=== PATIENT | male | born 1980 | race Caucasian/White ===

== ENCOUNTER → 2023-08-01 14:35 | Outpatient (REF) | payer OTHER, SELFPAY | LOC: RAD 14:35 | PROVIDERS: ATTENDING PHYSICIAN Family Medicine | DX: R07.81 Pleurodynia (principal) | CPT/HCPCS: 71101 ==

== ENCOUNTER 2024-02-22 17:32 | Emergency (ER) | payer OTHER, SELFPAY ==
[2024-02-22 17:32] VITALS: BMI 32.0
[2024-02-22 17:35] VITALS: BP 125/73
[2024-02-22 18:39] LABS: ALT (SGPT) 23 U/L (0-50); AST (SGOT) 23 U/L (17-59); Albumin 4.3 g/dl (3.5-5.0); Alkaline Phosphatase 59 U/L (38-126); Blood Urea Nitrogen 30 mg/dl (9-20); Calcium 9.2 mg/dl (8.4-10.2); Carbon Dioxide 20 mmol/L (22-30); Chloride 99 mmol/L (98-107); Glucose 242 mg/dl (70-99); Potassium 5.4 mmol/L (3.5-5.1); Sodium 135 mmol/L (135-145); Total Bilirubin 0.6 mg/dl (0.2-1.3); Total Protein 6.9 g/dl (6.3-8.2); eGFR > 60.00
[2024-02-22 19:54] LABS: % Basophils 0.7 % (0-2); % Immature Granulocytes 0.4 % (0-0.5); % Lymphocytes 5.7 % (20.5-51.1); % Monocytes 2.9 % (1.7-9.3); % Neutrophils 90.3 % (42.2-75.2); Absolute Basophils 0.1 10^3/uL (0-0.2); Absolute Immature Granulocytes 0.1 10^3/uL (0-0.05); Absolute Lymphocytes 0.8 10^3/uL (1.2-3.4); Absolute Monocytes 0.4 10^3/uL (0.1-0.6); Absolute Neutrophils 12.2 10^3/uL (1.4-6.5); Hematocrit 41.6 % (39.0-52.0); Hemoglobin 14.7 g/dL (13.0-18.0); Mean Corp Hgb Conc. 35.3 g/dL (33.0-37.0); Mean Corpuscular Hgb 30.6 pg (27.0-31.0); Mean Corpuscular Volume 86.5 fL (80.0-94.0); Mean Platelet Volume 9.3 fL (7.4-10.4); Nucleated Red Blood Cells % 0 % (-); Platelet Count 295 10^3/uL (130-400); Red Blood Cell Count 4.81 10^6/uL (4.70-6.10); Red Cell Dist. Width 13.9 % (11.5-14.5); White Blood Cell Count 13.5 10^3/uL (4.8-10.8)
[2024-02-22 20:10] VITALS: BP 116/75
[2024-02-22 20:17] LABS: Troponin I < 0.012 ng/ml
--- NOTE | 2024-02-22 20:54 | ED.GENMED ---
History of Present Illness
General
Chief Complaint: Chest Pain
Source: patient
Exam Limitations: none
Time Seen by Provider: 02/22/24 20:53
Nursing documentation reviewed up to this point in time: agreed with
History of Present Illness
History of Present Illness:
44-year-old male with history of HTN, NIDDM, Down syndrome with developmental delays, speaks only Martiniquais, presents with mother who states since this 8 a.m. pt has been complaining of pain, wincing and pointing to epigastric area.
At lunch he stopped eating and became tearful due to the pain stating 'I feel burn,' again pointing to epigastric area. Pain has been intermittent, at 3 p.m. mom gave TUMS and OTC 'antacid liquid' with some relief but symptom returned at 5 p.m. so
she brought him here afraid it was his heart
Pt has appointment with GI doctor in [place] next month
Past History
Past History
ED Past Medical History: HTN, NIDDM, Other (gout ) and Other (Down's syndrome)
Social History
Tobacco: Non-smoker
Alcohol: None
Personal: Single
Living: with family
Employment: Not employed
Family History
Family History: CAD (Father [place] age 48, stent, [place] age 70 2 stents)
Review of Systems
Review of Systems
Allergies reviewed?: Yes
Unable to obtain full review of systems at this time due to: other (Down's syndrome)
Other source history: family
All Other Systems: ROS reviewed and negative except as documented in HPI and ROS
Constitutional: Denies fever
Respiratory: Denies trouble breathing
Cardiac: Denies chest pain or diaphoresis
ABD/GI: Reports abdominal pain (points to epigastric area); Denies nausea, vomiting, diarrhea or anorexia
: Denies dysuria or difficulty voiding
Musculoskeletal: Reports no symptoms
Skin: Reports no symptoms
Neurological: Reports no symptoms
Phy Exam
Physical Exam
Physical Exam:
GENERAL: No acute distress. A&Ox3.
CONSTITUTIONAL: Afebrile.
EYES: clear, conjunctivae normal
ENMT: moist mucus membranes, Pharynx nl, edentulous
RESPIRATORY: Regular respirations, nonlabored, lungs clear.
CARDIOVASCULAR: Regular rate and rhythm, + murmur, no rubs.
GI: Soft, nontender, normal BS
MUSCULOSKELETAL: Moves with ease. Well perfused. No edema
SKIN: Warm, dry, pink
PSYCH: Normal mood and affect. Well kept, interactive and appropriate
NEUROLOGIC: Awake, alert and oriented. No focal neurological deficits
Scores
Heart Score for Chest Pain Patients
STEMI patient?: Not applicable
Course
Orders/Labs/Results
Orders:
Orders
02/22/24 17:36
Electrocardiogram (*1) Urgent
Reason for Study: Chest Pain
EKG- Treatment ONCE
02/22/24 17:51
Comprehensive Metabolic Panel Urgent
Lipase Urgent
Comment: ADD ON
02/22/24 19:47
Complete Blood Count/With Diff Urgent
Troponin I Urgent
02/22/24 21:08
Mag Hydrox/Al Hydrox/Simeth [Maalox] 30 ml Phenobarb/Hyoscy/Atropine/Scop [] 10 ml Viscous Lidocaine 2% [Xylocaine Viscous Cup] 10 ml PO NOW
02/22/24 21:09
Mag Hydrox/Al Hydrox/Simeth [Maalox] 30 ml .ROUTE .STK-MED ONE
Phenobarb/Hyoscy/Atropine/Scop [] 10 ml .ROUTE .STK-MED ONE
02/22/24 21:10
Viscous Lidocaine 2% [Xylocaine Viscous Cup] 15 ml .ROUTE .STK-MED ONE
02/22/24 22:17
CR Chest - 2 Views Urgent
Comment:
Reason For Exam: epigastric pain
02/22/24 22:23
Add On- LAB Urgent
Tests Added?: Lipase
02/22/24 22:24
CT Abd/Pel (IV only)-DH only Urgent
Comment:
Reason For Exam: epigastric pain
Abnormal Lab Results
02/22/24 02/22/24
17:51 19:47
WBC 13.5 H 10^3/uL
(4.8-10.8)
Abs Immat Gran (auto) 0.1 H 10^3/uL
(0-0.05)
Absolute Neuts (auto) 12.2 H 10^3/uL
(1.4-6.5)
Absolute Lymphs (auto) 0.8 L 10^3/uL
(1.2-3.4)
Neutrophils % 90.3 H %
(42.2-75.2)
Lymphocytes % 5.7 L %
(20.5-51.1)
Potassium 5.4 H mmol/L
(3.5-5.1)
Carbon Dioxide 20 L mmol/L
(22-30)
BUN 30 H mg/dl
(9-20)
Glucose 242 H mg/dl
(70-99)
02/22/24 19:47
02/22/24 17:51
Vital Signs
Initial and Last Documented VS:
Initial Vital Signs
Temp Pulse Resp Pulse Ox
97.9 F 105 18 97
02/22/24 17:34 02/22/24 17:34 02/22/24 17:34 02/22/24 17:34
Last Documented Vital Signs
Temp Pulse Resp BP Pulse Ox
98.0 F 88 14 114/67 94
02/22/24 20:10 02/22/24 22:15 02/22/24 22:15 02/22/24 22:00 02/22/24 22:15
MDM/Problems Addressed
Differential Diagnosis Includes:
SC, esophageal spasm, GERD
MDM/Problems Addressed:
44-year-old male with history of HTN, NIDDM, Down syndrome with developmental delays, speaks only Martiniquais, presents with mother who states since this 8 a.m. pt has been complaining of pain, wincing and pointing to epigastric area.
At lunch he stopped eating and became tearful due to the pain stating 'I feel burn,' again pointing to epigastric area. Pain has been intermittent, at 3 p.m. mom gave TUMS and OTC 'antacid liquid' with some relief but symptom returned at 5 p.m. so
she brought him here afraid it was his heart
Pt has appointment with GI doctor in [place] next month
EKG NSR
WBC mildly elevated
CMP BUN 20, glucose 242, bicarb [address] Sesay
Will obtain CXR and abd CT scan
11:50 p.m.
Chest x-ray radiology report read: No acute cardiopulmonary process.
CT abd/pelvis w IV only contrast: Radiology report read: Impression, gastric wall thickening likely representing underlying gastritis. No bowel obstruction normal gallbladder and appendix
Copy of report and chest x-ray given to mother
Patient referred to the [facility] cardiology hotline due to the fact that his father had an SC at age 48, patient has Down syndrome and cannot always express his symptoms
appointment with GI doctor in [place] next month
RX for Protonix sent to pt pharmacy
*Critical Care Note
Total Time (30-74mins, 75-104mins- exclusive of procedures): Not Applicable
ED Attending Note
-
Portions of this chart may have been created with voice recognition software.� Occasional wrong word or��sound alike� substitutions may have occurred due to the inherent limitations of voice recognition software.
Discharge Plan
Departure
Patient Disposition: Home (Routine Discharge)
Date of Disposition: 02/23/24
Time of Disposition: 00:09
Patient with high blood pressure during this ER visit?: No
Condition: Good
Discharge Problem:
Acute epigastric pain, Acute gastritis, Atypical chest pain
Instructions: Acid Reflux and GERD in Adults (DC), [place] Diet, Gastritis (DC), Chest Pain DCA Follow Up
Prescriptions:
New
pantoprazole [Protonix] 40 mg tablet,delayed release (DR/EC)
40 mg PO DAILY Qty: 30 0RF
No Action
Allopurinol
100 mg PO DAILY
Patient Comments:
dose unknown
lisinopril 5 MG tablet
5 mg PO DAILY
metformin [Fortamet] 500 MG tablet extended release 24hr
500 mg PO BID
docosahexaenoic acid-epa 1 CAP capsule
1 cap PO DAILY
Referrals:
Elly Jang DO [Family Provider] -
Activity Restrictions/Additional Instructions:
As we discussed, I sent a prescription for Protonix to your pharmacy
Your CAT scan is consistent with gastritis. You also have a moderate amount of stool in your colon, be sure you are moving your bowels on a regular basis and if not you may want to take a stool softener or Metamucil for constipation
[place] diet for a week to see if it helps
Keep your appointment with your GI doctor next month
Interventions
Interventions:
*Risk Screen - Suicide Last Done: 02/22/24 17:37
*General Assessment Last Done: 02/22/24 21:21
*Neglect/Abuse Screening Last Done: 02/22/24 17:37
ED- Fall Risk Assessment Last Done: 02/22/24 21:22
*ED COVID-19 Vaccine History Last Done: 02/22/24 21:22
*Nursing Disposition Last Done: 02/23/24 00:10
ED- Cardiac Assessment Last Done: 02/22/24 21:21
Discharge Date and Time
Discharge Date/Time: 02/23/24 00:10
Print Language: TAMAZIGHT
[2024-02-22] MEDS: MAALOX 50 PO (21:16)
[2024-02-22 21:19] VITALS: BP 118/61
[2024-02-22 22:00] VITALS: BP 114/67
[2024-02-22 22:57] LABS: Lipase 60 U/L (23-300)
== END 2024-02-23 00:10 | disposition home or self-care (01) ==
LOC: EMR 17:32
PROVIDERS: Emergency Medicine; EMERGENCY PHYSICIAN Emergency Medicine; FAMILY PHYSICIAN Family Medicine
DX: K29.00 Acute gastritis without bleeding (principal); R07.89 Other chest pain; E11.9 Type 2 diabetes mellitus without complications; I10 Essential (primary) hypertension; Q90.9 Down syndrome, unspecified
CPT/HCPCS: 99285; 71046; 74177; 80053; 83690; 84484; 85025; 93005; Q9967

== ENCOUNTER → 2024-04-09 07:08 | Outpatient (REF) | payer OTHER, MEDICARE, SELFPAY | LOC: DHCBC/DCA 07:08 | PROVIDERS: ATTENDING PHYSICIAN Internal Medicine Interventional Cardiology; FAMILY PHYSICIAN Family Medicine | DX: I20.89 Other forms of angina pectoris (principal) | CPT/HCPCS: 78452; 93017; A9500; J2785 ==

== ENCOUNTER → 2024-04-17 10:17 | Outpatient (REF) | payer OTHER, MEDICARE, SELFPAY | LOC: RCS 10:17 | PROVIDERS: ATTENDING PHYSICIAN Internal Medicine Interventional Cardiology; FAMILY PHYSICIAN Family Medicine | DX: I20.89 Other forms of angina pectoris (principal); I10 Essential (primary) hypertension | CPT/HCPCS: 93306 ==

== ENCOUNTER 2024-08-01 02:15 | Inpatient (IN) | payer OTHER, SELFPAY ==
[2024-07-31 21:21] VITALS: BP 136/67
--- NOTE | 2024-07-31 22:06 | ED.GENMED ---
History of Present Illness
General
Chief Complaint: Fever
Source: patient
Exam Limitations: none
Time Seen by Provider: 07/31/24 22:05
Nursing documentation reviewed up to this point in time: agreed with
History of Present Illness
History of Present Illness:
This is a 44-year-old male with past medical history of Down syndrome, hypertension, diabetes, who presents emergency department today with concerns of fever and cough for the past 3 days. Mom reports that patient started to have ever since they
got back from a trip to the [facility] for vacation. Of note, he was in contact with children who were sick with flulike symptoms. Patient speaks Puerto Rican and his mom translates for him. He reports that he also has had a sore throat with this as
well however his appetite has been normal. He has not had any nausea or vomiting, he has not had any diarrhea or abdominal pain. He denies any trouble swallowing. He took Tylenol at home for his fever.
Past History
Past History
ED Past Medical History: HTN, NIDDM, Other (gout ) and Other (Down's syndrome)
Social History
Tobacco: Non-smoker
Alcohol: None
Personal: Single
Living: with family
Employment: Not employed
Family History
Family History: CAD (Father [place] age 48, stent, [place] age 70 2 stents)
Review of Systems
Review of Systems
All Other Systems: ROS reviewed and negative except as documented in HPI and ROS
Phy Exam
Physical Exam
Physical Exam:
General: Patient is well appearing and in no acute distress; non-toxic
Skin: Warm and dry, no rashes or lesions
Head: Normocephalic, atraumatic
Eyes: Sclera non-icteric. EOMs intact.
Throat: Mild pharyngeal erythema, no cervical lymphadenopathy
Cardiac: Patient mildly tachycardic otherwise regular rhythm, no murmurs
Pulm: Normal respiratory effort, no wheezes, occasional rhonchi at right lower lung base
Abdomen: No abdominal tenderness to palpation
Neuro: CN II-XII intact, no focal neurologic deficits.
Psychiatric: Appropriate mood and affect.
Course
Orders/Labs/Results
Orders:
Orders
07/31/24 22:05
Electrocardiogram (*1) Urgent
Reason for Study: Other
Other Reason for Exam: Possible Sepsis
Cardiac Monitoring- Treatment ONCE
O2 Therapy [RESP] Urgent
Titrate/Wean O2 to maintain O2 sat greater than (%): 93
Special Instructions: TO MAINTAIN CONTINUOUS O2 SATS > OR = 93%
Pulse Ox/cont/shift [RESP] Urgent
Quantity: 1
Special Instructions: CONTINUOUS
07/31/24 22:19
CR Chest - 2 Views Urgent
Comment:
Reason For Exam: shortness of breath, cough
07/31/24 22:22
Ketorolac [Toradol] 15 mg IV NOW STA
07/31/24 22:34
Complete Blood Count/With Diff Urgent
Comprehensive Metabolic Panel Urgent
Lactic Acid Q4H
Comment: ON ICE, CANCEL 2ND ORDER IF FIRST LACTIC ACID LEVEL <2
Blood Culture Q20M
PATRICIA Source: Blood/Venous
Specimen Description:
Comment: Urgent from separate sites. If patient screens positive for possible sepsis
07/31/24 22:45
Rapid Strep Group A Urgent
PATRICIA Source: Throat/Pharynx
Specimen Description:
0.9% Sodium Chloride 500 ml [Nss] 500 ml IV BOLUS
07/31/24 22:51
COVID-19 Antigen Urgent
Source: Nasal Swab
Blood Culture Q20M
PATRICIA Source: Blood/Venous
Specimen Description:
Comment: Urgent from separate sites. If patient screens positive for possible sepsis
Influenza A+B Rapid Molecular Urgent
PATRICIA Source: Nasal Swab
Specimen Description:
Date Specimen was Collected: 07/31/24
Time Specimen was Collected: 22:35
Throat Culture, Comprehensive Urgent
PATRICIA Source: Throat/Pharynx
Specimen Description:
Date Specimen was Collected: 07/31/24
Time Specimen was Collected: 22:35
07/31/24 23:17
Urinalysis Reflex To Culture Urgent
Date Specimen was Collected: 07/31/24
Time Specimen was Collected: 22:05
Urine Microscopic Reflex Cult Urgent
07/31/24 23:40
0.9% Sodium Chloride 500 ml [Nss] 500 ml IV BOLUS
08/01/24 01:05
Oseltamivir Phosphate [Tamiflu] 75 mg PO NOW STA
08/01/24 01:57
Admit/Transfer Patient As Directed
Co-Sign Provider:
Level of Care: Inpatient admission
Assign to:: Medical/Surgical
Physician / Group: hospitalist
Diagnosis: influenza pneumonia
Reason for Hospitalization: hypoxia
Expected length of stay greater than two midnights?: Yes
ELOS- Estimated Length of Stay in days: 2
I certify the patient meets the requirements for IP care: Yes
PRN Pain Medication Management As Directed
May give lesser potent ordered pain med per pt: Yes
preference::
Protocol:: Medication orders for pain may be administered in a
manner that supports deferring to patient preference
when the pt is:
- Requesting an ordered lesser potent pain medication.
Least to most potent pain medications are defined
as: acetaminophen < NSAID < tramadol < opioids
(morphine, oxycodone, hydromorphone).
- Requesting a lesser dose of the same medication IF
ORDERED.
- Requesting a less intrusive route of administration
if both routes are prescribed by the provider (PO <
IV).
08/01/24 02:00
Code Status As Directed
Resuscitation Status: Full Code
08/01/24 02:05
MRSA Screen Routine
PATRICIA Source: Nose
Specimen Description:
CefTRIAXone [Rocephin] 1,000 mg IV NOW STA
Doxycycline [Vibramycin] 100 mg PO NOW STA
Bedside Glucose Monitoring As Directed
Frequency: Other frequency
Other frequency: once stat
08/01/24 02:14
Sterile Water [Sterile Water For Injection] 10 ml IV NOW STA
08/01/24 02:34
Acetaminophen [Tylenol] 650 mg PO Q4HPRN PRN
Bisacodyl [Dulcolax] 10 mg RECTAL [id number] PRN
Docusate W/Senna [Senokot-S] 1 tablet PO BIDPRN PRN
Guaifenesin/Dextromethorphan [Robitussin Dm] 5 ml PO Q4HPRN PRN
Ipratropium/Albuterol Sulfate [Duoneb] 3 ml INH R Q4HPRN PRN
Ketorolac [Toradol] 10 mg IV Q6HPRN PRN
Polyethylene Glycol Powder [Miralax] 17 grams PO DAILYPRN PRN
08/01/24 02:34
Activity As Directed
Activity Level: With Assistance
Bedside Glucose Monitoring As Directed
Frequency: AC&HS
Vital Signs As Directed
Frequency: Per unit guidelines
O2 Therapy [RESP] Routine
Nasal Cannula Liter Flow: 2 LPM
Titrate/Wean O2 to maintain O2 sat greater than (%): 93
Pulse Ox/spot Check [RESP] Routine
Quantity: 1
DX Deep Vein Thrombosis Video Routine
08/01/24 03:00
Flush (0.9% Sodium Chloride) [Flush (Nss)] See Dose Instructions IV PER PROTOCOL
08/01/24 Breakfast
1800 calorie (15 carb) Diabetic
Hemoglobin A1c [Glycohemoglobin (HgbA1c)] IN AM
Levothyroxine [Synthroid] 112 mcg PO DAILY @ 0600
08/01/24 07:30
Insulin Aspart Corrective Low [Novolog Flexpen-Low Resistance] See Protocol SC AC
08/01/24 08:00
Allopurinol [Zyloprim] 300 mg PO DAILY
Doxycycline [Vibramycin] 100 mg PO Q12
Glipizide Extended Release [Glucotrol Xl (Extended Release)] 5 mg PO BID AT 0800,1700
Lisinopril [Zestril] 5 mg PO DAILY
Metformin Extended Release [Glucophage Xr Extended Release] 1,000 mg PO BID AT 0800,1700
Oseltamivir Phosphate [Tamiflu] 75 mg PO BID
08/01/24 18:00
Enoxaparin Sodium [Lovenox] 40 mg SC QPM
08/02/24 02:00
CefTRIAXone [Rocephin] 1,000 mg IV Q24H
Abnormal Lab Results
07/31/24 07/31/24
22:34 23:17
RBC 4.32 L 10^6/uL
(4.70-6.10)
Hct 38.5 L %
(39.0-52.0)
Absolute Neuts (auto) 7.0 H 10^3/uL
(1.4-6.5)
Absolute Lymphs (auto) 1.0 L 10^3/uL
(1.2-3.4)
Neutrophils % 84.6 H %
(42.2-75.2)
Lymphocytes % 12.3 L %
(20.5-51.1)
Carbon Dioxide 20 L mmol/L
(22-30)
BUN 24 H mg/dl
(9-20)
Glucose 396 H mg/dl
(70-99)
Total Protein 6.1 L g/dl
(6.3-8.2)
Urine Bacteria (Reflex) Few A
(Negative)
Urine Glucose 4+ A
(Negative)
Urine Albumin (Reflex) 1+ A
(Neg - Trace)
07/31/24 22:34
07/31/24 22:34
Vital Signs
Initial and Last Documented VS:
Initial Vital Signs
Temp Pulse Resp BP Pulse Ox
102.1 F H 103 20 136/67 97
07/31/24 21:21 07/31/24 21:21 07/31/24 21:21 07/31/24 21:21 07/31/24 21:21
Last Documented Vital Signs
Temp Pulse Resp BP Pulse Ox
99.5 F 87 24 110/63 93
08/01/24 00:30 08/01/24 00:30 08/01/24 00:30 08/01/24 00:30 08/01/24 01:02
MDM/Problems Addressed
Differential Diagnosis Includes:
ddx include CAP, influenza, CHF, viral syndrome
MDM/Problems Addressed:
44-year-old male with past medical history of Down syndrome, hypertension, diabetes who presents emergency department today with concerns of fever, cough, and phlegm production for past 3 days. He denies any nausea or vomiting, diarrhea. He on
exam as well. He does have coarse lung sounds on the right. I was alerted that patient started to become hypoxic to 88% on room air. Patient started on 2 L of oxygen. New short of breath at this time. Chest x-ray suggests possible [facility]
pneumonia or viral pneumonia/viral pneumonitis. In light of new oxygen requirement, will refer for admission. Case reviewed with my attending.
*Pulse Oximetry
Patient hypoxic: no
*Critical Care Note
Total Time (30-74mins, 75-104mins- exclusive of procedures): Not Applicable
Data Reviewed
Review of Other/Old Records Reveals: Records (Reviewed ER physician documentation from 02/22/2024 patient seen for acute epigastric pain, discharged )
Source: patient and records
Update Note
Update Note:
12:52 am--I was notified by nursing staff that patient became hypoxic
ED Attending Note
-
Portions of this chart may have been created with voice recognition software.� Occasional wrong word or��sound alike� substitutions may have occurred due to the inherent limitations of voice recognition software.
Discharge Plan
Departure
Patient Disposition: Admit
Date of Disposition: 08/01/24
Time of Disposition: 01:11
Admit to: Med/Surg
Presentation/result/management discussed w/ accepting MD/DO: Hospitalist
Patient with high blood pressure during this ER visit?: Yes
Condition: Fair
Discharge Problem:
Influenza B, Acute hypoxemic respiratory failure
Interventions
Interventions:
*Risk Screen - Suicide Last Done: 07/31/24 21:21
*General Assessment Last Done: 07/31/24 23:03
*Neglect/Abuse Screening Last Done: 07/31/24 21:21
*ED- Fall Risk Assessment Last Done: 07/31/24 23:03
*ED COVID-19 Vaccine History Last Done: 07/31/24 23:03
ED- Neurological Assessment Last Done: 07/31/24 23:03
ED-Skin Assessment Last Done: 07/31/24 22:30
[2024-07-31 22:55] LABS: % Basophils 0.4 % (0-2); % Immature Granulocytes 0.4 % (0-0.5); % Lymphocytes 12.3 % (20.5-51.1); % Monocytes 2.3 % (1.7-9.3); % Neutrophils 84.6 % (42.2-75.2); Absolute Monocytes 0.2 10^3/uL (0.1-0.6); Hematocrit 38.5 % (39.0-52.0); Hemoglobin 13.1 g/dL (13.0-18.0); Mean Corpuscular Hgb 30.3 pg (27.0-31.0); Mean Corpuscular Volume 89.1 fL (80.0-94.0); Mean Platelet Volume 9.3 fL (7.4-10.4); Nucleated Red Blood Cells % 0 % (-); Platelet Count 190 10^3/uL (130-400); Red Blood Cell Count 4.32 10^6/uL (4.70-6.10); Red Cell Dist. Width 14.2 % (11.5-14.5); White Blood Cell Count 8.3 10^3/uL (4.8-10.8)
[2024-07-31] MEDS: TORADOL 15 MG IV (23:02)
[2024-07-31] MEDS: NSS 500 IV (23:05)
[2024-07-31 23:07] LABS: Lactic Acid 1.9 mmol/L (0.7-2.0)
[2024-07-31 23:08] LABS: ALT (SGPT) 23 U/L (0-50); AST (SGOT) 22 U/L (17-59); Albumin 3.5 g/dl (3.5-5.0); Alkaline Phosphatase 64 U/L (38-126); Blood Urea Nitrogen 24 mg/dl (9-20); Calcium 8.5 mg/dl (8.4-10.2); Carbon Dioxide 20 mmol/L (22-30); Chloride 106 mmol/L (98-107); Glucose 396 mg/dl (70-99); Potassium 4.4 mmol/L (3.5-5.1); Sodium 136 mmol/L (135-145); Total Bilirubin 0.3 mg/dl (0.2-1.3); Total Protein 6.1 g/dl (6.3-8.2); eGFR > 60.00
[2024-07-31 23:12] LABS: COVID-19 Antigen Negative (Negative)
[2024-07-31 23:51] LABS: Urine Albumin 1+ (Neg - Trace); Urine Bilirubin Negative (Negative); Urine Character Clear (Clear); Urine Color Yellow; Urine Glucose 4+ (Negative); Urine Ketone Negative (Negative); Urine Leukocyte Negative (Negative); Urine Nitrite Negative (Negative); Urine Occult Blood Negative (Negative); Urine Urobilinogen Negative (Neg - 1+)
[2024-08-01] VITALS (14 sets, daily range): BP systolic 103–130; BP diastolic 58–78; BMI 34.9
[2024-08-01 00:51] LABS: Urine Amorphous Seen; Urine Bacteria Few (Negative); Urine Red Blood Cell 0-2 /HPF (0-2); Urine White Cell 0-2 /HPF (0-5)
[2024-08-01] MEDS: TAMIFLU 75 MG PO ×3 (01:16→20:53)
[2024-08-01] MEDS: NSS 500 IV (01:17)
--- NOTE | 2024-08-01 01:50 | HPS.HSE ---
Family Physician
-
Family Physician: Elly Jang DO
Chief Complaint
-
Fever
History of Present Illness
This is a 44-year-old male with past medical history significant for Down syndrome, hypertension, uor-ocjlhwr-odjrkojtw diabetes who presents to the emergency department from home with fever via family. Patient is being and speaking only. History
obtained via interpretation by mother who is BUSINESS PROCESS ANALYST.
Mother reports patient has been having symptoms about 5 days. He was exposed to family members including several children with cold and flulike symptoms about 1 week ago. 5 days ago patient started having runny nose and nasal congestion. He has
been taking Robitussin for symptom control. However today the patient appeared more ill than at baseline. She checked her temperature at around 7 PM and it was 102 �F. She gave to 500 mg tablets of Tylenol patient continued to have persistent
fever. She checked her pulse ox and it was 94 so she said to bring him to the emergency department. Patient himself was not having any coughing. He denies any shortness of breath.
In the emergency department he had a temp of 99.5, was satting 93% on 2 L. Blood pressure was 110/63 with a pulse of 87. ECG shows sinus rhythm at rate of [address] or T wave changes. CBC was completely unremarkable. Electrolyte
BUN/creatinine were all normal. Glucose was elevated at 396. He had a positive influenza. COVID test was negative.
Chest x-ray shows no acute infiltrates.
Medical History
Past Medical History
Past Medical History: Reports HTN, Hypercholesterolemia, Hypothyroidism, NIDDM and Other (Down syndrome)
Additional Past Medical History:
Gout
Past Surgical History: Reports None
Social History
Tobacco: Non-smoker
Alcohol: None
Drug: None
Personal: Single
Living: With Family
Employment: Disabled
Family History
Family History: Not pertinent
Allergies / Home Medications
Allergies reflects when Allergies were last updated in [employer].
Home Medications with original date entered in [employer]
Allergy/Medication List:
Allergies
Allergy/AdvReac Type Severity Reaction Status Date / Time
rosuvastatin Allergy Unknown Verified 07/31/24 21:26
NKA - No Known Allergies Allergy Unknown Uncoded 07/31/24 21:24
Home Medications
Allopurinol 100 mg PO DAILY 02/15/10
lisinopril 5 mg tablet 5 mg PO DAILY 02/15/10
metformin 500 mg tablet,extended release 24hr (osmotic) (Fortamet) 500 mg PO BID 02/15/10
docosahexaenoic acid (dha)-epa 120 mg-180 mg capsule 1 cap PO DAILY 05/28/14
pantoprazole 40 mg tablet,delayed release (Protonix) 40 mg PO DAILY #30 tabs 02/22/24
Review of Systems
-
History Source: Family
Constitutional: Reports Fever
EENT: Reports Runny Nose
Respiratory: Reports No Symptoms
Cardiac: Reports No Symptoms
Abdomen/GI: Reports No Symptoms
: Reports No Symptoms
Musculoskeletal: Reports No Symptoms
Skin: Reports No Symptoms
Neurological: Reports No Symptoms
Endocrine: Reports No Symptoms
Hematologic/Lymphatic: Reports No Symptoms
Physical Exam
Vital Signs
Vital Signs
Temp Pulse Resp BP Pulse Ox
99.5 F 87 24 110/63 93
08/01/24 00:30 08/01/24 00:30 08/01/24 00:30 08/01/24 00:30 08/01/24 01:02
Physical Exam
General: Well Developed, Well Nourished, No Apparent Distress and Comfortable
HEENT: NormoCephalic, Moist mucous membranes, Atraumatic and PERRLA
Respiratory: Rhonchi
Cardiac: S1/S2 and Regular Rhythm
Breast: Deferred by me
GI: Soft, Non Tender, Non Distended and Normal Bowel Sounds
Rectal: Deferred by Provider
Genito-urinary: Deferred by me
Musculoskeletal: No Clubbing, No Cyanosis and No Edema
Skin: Warm
Neuro: AO x 3 and Nonfocal/grossly intact
Hematologic/Lymphatic: No Lymphadenopathy
Psych: Calm
Laboratory Results
-
07/31/24 22:34
07/31/24 22:34
Laboratory Results
Lactic Acid Cancelled 08/01/24 02:15
Total Bilirubin 0.3 mg/dl (0.2-1.3) 07/31/24 22:34
AST 22 U/L (17-59) 07/31/24 22:34
ALT 23 U/L (0-50) 07/31/24 22:34
Alkaline Phosphatase 64 U/L (38-126) 07/31/24 22:34
Data Reviewed
-
Diagnostic Radiology: Image Personally Visualized and interpreted
Medical Tests (Nuc Med, Echo, EKG etc): Image Personally Visualized and interpreted
Lab Data: Labs Reviewed by me
Old Records: Reviewed
Impression/Plan
-
IMPRESSION:
44-year-old with history of Down syndrome, kfp-bgvfifw-fccayjlet diabetes mellitus coming in with 5 days of upper respiratory symptoms found to have a fever and positive influenza testing. He is also found to be hypoxic requiring 2 L to maintain
sat greater than 93%. His chest x-ray shows no acute infiltrates here today. He is found to be hyperglycemic to 390.
PLAN:
Pneumonia -viral pneumonia secondary to influenza. Cannot rule out superimposed bacterial pneumonia but chest x-ray shows no focal infiltrate.
- admit to med/surg
- started on tamiflu
- will start ceftriaxone/doxycycline givne hypoxia
- check procalcitonin
- supportive measures with antipyretics, antitussives
- hydration overnight
DMII - Hyperglycemia on oral medications
- give IV fluids
- 3 units of regular insulin now
- continue metformin 1000 bid
- continue glipizide 5 bid
- sliding scale insulin
DVT PPX - lovenox sq
Code status - Full Code
[2024-08-01] MEDS: ROCEPHIN 1000 MG IV (05:08)
[2024-08-01] MEDS: STERILE WATER FOR INJECTION 10 ML IV (05:09)
[2024-08-01] MEDS: VIBRAMYCIN 100 MG PO ×2 (05:09→20:53)
[2024-08-01 08:39] LABS: Glucose - Point of Care 213 mg/dl (70-99)
[2024-08-01] MEDS: ZESTRIL 5 MG PO (09:18)
[2024-08-01] MEDS: GLUCOPHAGE XR EXTENDED RELEASE 1000 MG PO (09:19)
[2024-08-01] MEDS: ZYLOPRIM 300 MG PO (09:19)
[2024-08-01] MEDS: GLUCOTROL XL (EXTENDED RELEASE) 5 MG PO (09:19)
[2024-08-01] MEDS: SYNTHROID 112 MCG PO (09:19)
[2024-08-01] MEDS: NOVOLOG FLEXPEN-LOW RESISTANCE 2 UNITS SC ×2 (09:20→17:43)
[2024-08-01 12:09] LABS: Glucose - Point of Care 276 mg/dl (70-99)
[2024-08-01] MEDS: PROTONIX 40 MG PO (12:09)
[2024-08-01] MEDS: NOVOLOG FLEXPEN-LOW RESISTANCE 3 UNITS SC (12:10)
[2024-08-01] MEDS: ROBITUSSIN DM 5 ML PO ×2 (13:49→23:43)
--- NOTE | 2024-08-01 13:49 | W.PN.HOSP.TC ---
Today's Communication/Plan
-
Monitor vital signs see plan
Continue with antibiotics, Tamiflu
Wean oxygen as tolerated
Spoke with mother at bedside
Nonbillable note
Assessment / Plan
Assessment / Plan
General: Well Developed, Well Nourished, No Apparent Distress and Comfortable
HEENT: NormoCephalic, Moist mucous membranes, Atraumatic and PERRLA
Respiratory: Rhonchi
Cardiac: S1/S2 and Regular Rhythm
GI: Soft, Non Tender, Non Distended and Normal Bowel Sounds
Musculoskeletal: No Edema
Neuro: AO x 3 and Nonfocal/grossly intact
Psych: Calm
Acute hypoxic respiratory insufficiency secondary to influenza B pneumonia with superimposed bacterial pneumonia
Sepsis secondary to above
Follow blood culture
Continue with Tamiflu
Continue with ceftriaxone/doxycycline
Follow fever curve
Type 2 diabetes mellitus
- continue metformin 1000 bid
- continue glipizide 5 bid
- sliding scale insulin
History of Down syndrome
Hypertension
Hyperlipidemia
hx of gout
DVT PPX - lovenox sq
Code status - Full Code
Anticipated Discharge: 24 - 48 hours
Subjective/Interval History
-
Date of Service: August 01, 2024
Denies pain
Objective Data
-
Vital Signs:
Vital Signs
Temp Pulse Resp BP Pulse Ox
97.9 F 89 17 128/69 100
08/01/24 13:07 08/01/24 13:07 08/01/24 13:07 08/01/24 13:07 08/01/24 13:07
I&O
07/31/24 08/01/24 08/02/24
06:59 06:59 06:59
Intake Total 1000 / 1000 360 / 360
Balance 1000 / 1000 360 / 360
[2024-08-01 17:10] LABS: Glucose - Point of Care 213 mg/dl (70-99)
[2024-08-01] MEDS: GLUCOTROL 5 MG PO (17:43)
[2024-08-01] MEDS: LIPITOR 10 MG PO (17:43)
[2024-08-01] MEDS: LOVENOX 40 MG SC (17:43)
[2024-08-01] MEDS: GLUCOPHAGE 1000 MG PO (17:43)
[2024-08-01] MEDS: TYLENOL 650 MG PO (19:30)
[2024-08-01 22:18] LABS: Glucose - Point of Care 222 mg/dl (70-99)
[2024-08-02] MEDS: ROCEPHIN 1000 MG IV (06:07)
[2024-08-02] MEDS: STERILE WATER FOR INJECTION 10 ML IV (06:08)
[2024-08-02] MEDS: SYNTHROID 112 MCG PO (06:09)
[2024-08-02 07:45] VITALS: BP 115/68
[2024-08-02] MEDS: GLUCOPHAGE 1000 MG PO ×2 (07:55→16:23)
[2024-08-02] MEDS: GLUCOTROL 5 MG PO ×2 (07:56→16:21)
[2024-08-02] MEDS: ZESTRIL 5 MG PO (07:56)
[2024-08-02] MEDS: ZYLOPRIM 300 MG PO (07:56)
[2024-08-02] MEDS: TAMIFLU 75 MG PO ×2 (07:56→19:50)
[2024-08-02] MEDS: VIBRAMYCIN 100 MG PO ×2 (07:56→19:50)
[2024-08-02] MEDS: PROTONIX 40 MG PO (07:56)
[2024-08-02 08:06] LABS: Glucose - Point of Care 206 mg/dl (70-99)
[2024-08-02] MEDS: NOVOLOG FLEXPEN-LOW RESISTANCE 2 UNITS SC ×2 (08:12→18:23)
[2024-08-02 08:21] LABS: % Basophils 0.4 % (0-2); % Immature Granulocytes 0.4 % (0-0.5); % Monocytes 2.3 % (1.7-9.3); % Neutrophils 75.9 % (42.2-75.2); Absolute Lymphocytes 2.1 10^3/uL (1.2-3.4); Absolute Monocytes 0.2 10^3/uL (0.1-0.6); Absolute Neutrophils 7.4 10^3/uL (1.4-6.5); Hematocrit 35.4 % (39.0-52.0); Hemoglobin 12.4 g/dL (13.0-18.0); Mean Corpuscular Hgb 31.3 pg (27.0-31.0); Mean Corpuscular Volume 89.4 fL (80.0-94.0); Mean Platelet Volume 9.8 fL (7.4-10.4); Nucleated Red Blood Cells % 0 % (-); Platelet Count 186 10^3/uL (130-400); Red Blood Cell Count 3.96 10^6/uL (4.70-6.10); Red Cell Dist. Width 14.2 % (11.5-14.5); White Blood Cell Count 9.8 10^3/uL (4.8-10.8)
[2024-08-02 08:50] LABS: Blood Urea Nitrogen 15 mg/dl (9-20); Calcium 8.2 mg/dl (8.4-10.2); Carbon Dioxide 22 mmol/L (22-30); Chloride 107 mmol/L (98-107); Estimated Creatinine Clearance 122 ml/min; Glucose 201 mg/dl (70-99); Potassium 4.2 mmol/L (3.5-5.1); Sodium 138 mmol/L (135-145); eGFR > 60.00
--- NOTE | 2024-08-02 11:58 | W.PN.HOSP.TC ---
Today's Communication/Plan
-
Monitor vital signs see plan
Continue with Tamiflu, antibiotics
Home O2 evaluation tomorrow
Wean oxygen as tolerated
Follow fever curve
Discussed with mother at bedside
Follow cultures
Assessment / Plan
Assessment / Plan
General: Well Developed, Well Nourished, No Apparent Distress and Comfortable
HEENT: NormoCephalic, Moist mucous membranes, Atraumatic and PERRLA
Respiratory: Rhonchi
Cardiac: S1/S2 and Regular Rhythm
GI: Soft, Non Tender, Non Distended and Normal Bowel Sounds
Musculoskeletal: No Edema
Neuro: AO x 3 and Nonfocal/grossly intact
Psych: Calm
Acute hypoxic respiratory insufficiency secondary to influenza B pneumonia with superimposed bacterial pneumonia
Currently on 2 L, wean oxygen as tolerated
Home O2 evaluation tomorrow
Sepsis secondary to above
bcx NGTD
Continue with Tamiflu
Continue with ceftriaxone/doxycycline
Follow fever curve
Type 2 diabetes mellitus
- continue metformin 1000 bid
- continue glipizide 5 bid
- sliding scale insulin
History of Down syndrome
Hypertension
Hyperlipidemia
hx of gout
DVT PPX - lovenox sq
Code status - Full Code
Anticipated Discharge: Within 24 hours
Subjective/Interval History
-
Date of Service: August 02, 2024
Feeling better
Objective Data
-
Labs:
Laboratory Results
08/02/24
07:59
WBC 9.8
Hgb 12.4 L
Hct 35.4 L
Plt Count 186
Sodium 138
Potassium 4.2
Chloride 107
Carbon Dioxide 22
BUN 15
Creatinine 0.7
Glucose 201 H
Calcium 8.2 L
Vital Signs:
Vital Signs
Temp Pulse Resp BP Pulse Ox
97.6 F 87 16 115/68 92
08/02/24 07:45 08/02/24 07:56 08/02/24 07:45 08/02/24 07:56 08/02/24 11:39
I&O
08/01/24 08/02/24 08/03/24
06:59 06:59 06:59
Intake Total 1000 / 1000 840 / 840
Output Total 300 / 300
Balance 1000 / 1000 540 / 540
[2024-08-02 12:41] LABS: Glucose - Point of Care 320 mg/dl (70-99)
[2024-08-02] MEDS: NOVOLOG FLEXPEN-LOW RESISTANCE 4 UNITS SC (12:57)
[2024-08-02] MEDS: MUCINEX 600 MG PO ×2 (13:34→19:51)
[2024-08-02 15:55] VITALS: BP 120/64
[2024-08-02] MEDS: LIPITOR 10 MG PO (17:21)
[2024-08-02 17:53] LABS: Glucose - Point of Care 232 mg/dl (70-99)
[2024-08-02] MEDS: LOVENOX 40 MG SC (18:19)
[2024-08-02] MEDS: TYLENOL 650 MG PO (18:26)
[2024-08-02 21:53] LABS: Glucose - Point of Care 200 mg/dl (70-99)
[2024-08-02 23:42] VITALS: BP 124/68
[2024-08-03] MEDS: ROBITUSSIN DM 5 ML PO ×2 (00:03→13:41)
[2024-08-03] MEDS: DUONEB 3 ML INH (02:53)
[2024-08-03 06:00] VITALS: BMI 34.1
[2024-08-03] MEDS: STERILE WATER FOR INJECTION 10 ML IV (06:20)
[2024-08-03] MEDS: ROCEPHIN 1000 MG IV (06:20)
[2024-08-03] MEDS: SYNTHROID 112 MCG PO (06:20)
[2024-08-03 07:07] LABS: % Basophils 0.3 % (0-2); % Eosinophils 0.1 % (0-6); % Immature Granulocytes 0.3 % (0-0.5); % Neutrophils 78.3 % (42.2-75.2); Absolute Lymphocytes 1.8 10^3/uL (1.2-3.4); Absolute Monocytes 0.3 10^3/uL (0.1-0.6); Absolute Neutrophils 7.8 10^3/uL (1.4-6.5); Hematocrit 34.6 % (39.0-52.0); Hemoglobin 11.9 g/dL (13.0-18.0); Mean Corp Hgb Conc. 34.4 g/dL (33.0-37.0); Mean Corpuscular Hgb 30.4 pg (27.0-31.0); Mean Corpuscular Volume 88.5 fL (80.0-94.0); Mean Platelet Volume 10.2 fL (7.4-10.4); Nucleated Red Blood Cells % 0 % (-); Platelet Count 218 10^3/uL (130-400); Red Blood Cell Count 3.91 10^6/uL (4.70-6.10); Red Cell Dist. Width 13.9 % (11.5-14.5); White Blood Cell Count 9.9 10^3/uL (4.8-10.8)
[2024-08-03 07:39] LABS: Glucose - Point of Care 277 mg/dl (70-99)
[2024-08-03 07:52] LABS: Blood Urea Nitrogen 16 mg/dl (9-20); Calcium 8.5 mg/dl (8.4-10.2); Carbon Dioxide 22 mmol/L (22-30); Chloride 104 mmol/L (98-107); Estimated Creatinine Clearance 121 ml/min; Glucose 279 mg/dl (70-99); Potassium 4.3 mmol/L (3.5-5.1); Sodium 135 mmol/L (135-145); eGFR > 60.00
[2024-08-03 07:55] VITALS: BP 137/82
[2024-08-03] MEDS: NOVOLOG FLEXPEN-LOW RESISTANCE 3 UNITS SC ×2 (08:30→13:40)
[2024-08-03] MEDS: GLUCOTROL 5 MG PO ×2 (08:31→17:29)
[2024-08-03] MEDS: GLUCOPHAGE 1000 MG PO ×2 (08:31→17:28)
[2024-08-03] MEDS: ZESTRIL 5 MG PO (08:31)
[2024-08-03] MEDS: ZYLOPRIM 300 MG PO (08:31)
[2024-08-03] MEDS: TAMIFLU 75 MG PO ×2 (08:31→20:45)
[2024-08-03] MEDS: VIBRAMYCIN 100 MG PO ×2 (08:31→20:45)
[2024-08-03] MEDS: PROTONIX 40 MG PO (08:31)
[2024-08-03] MEDS: MUCINEX 600 MG PO ×2 (08:31→20:45)
[2024-08-03] MEDS: TYLENOL 650 MG PO (08:32)
--- NOTE | 2024-08-03 10:41 | W.PN.HOSP.TC ---
Today's Communication/Plan
-
Monitor vital signs see plan
Wean oxygen as tolerated
Will need home O2 evaluation prior to discharge, possibly tomorrow
Discussed with mother at bedside
Continue with Tamiflu, antibiotics
Assessment / Plan
Assessment / Plan
General: Well Developed, Well Nourished, No Apparent Distress and Comfortable
HEENT: NormoCephalic, Moist mucous membranes, Atraumatic and PERRLA
Respiratory: Rhonchi
Cardiac: S1/S2 and Regular Rhythm
GI: Soft, Non Tender, Non Distended and Normal Bowel Sounds
Musculoskeletal: No Edema
Neuro: AO x 3 and Nonfocal/grossly intact
Psych: Calm
Acute hypoxic respiratory insufficiency secondary to influenza B pneumonia with superimposed bacterial pneumonia
Currently on 2 L, wean oxygen as tolerated
Home O2 evaluation tomorrow before possible dc; currently back on o2.
Sepsis secondary to above
bcx NGTD
Continue with Tamiflu
Continue with ceftriaxone/doxycycline
Follow fever curve
Type 2 diabetes mellitus
- continue metformin 1000 bid
- continue glipizide 5 bid
- sliding scale insulin
History of Down syndrome
Hypertension
Hyperlipidemia
hx of gout
DVT PPX - lovenox sq
Code status - Full Code
Anticipated Discharge: Within 24 hours
Subjective/Interval History
-
Date of Service: August 03, 2024
denies pain, back on o2
Objective Data
-
Labs:
Laboratory Results
08/03/24
06:38
WBC 9.9
Hgb 11.9 L
Hct 34.6 L
Plt Count 218
Sodium 135
Potassium 4.3
Chloride 104
Carbon Dioxide 22
BUN 16
Creatinine 0.7
Glucose 279 H
Calcium 8.5
Vital Signs:
Vital Signs
Temp Pulse Resp BP Pulse Ox
97.2 F 93 18 137/82 93
08/03/24 07:55 08/03/24 07:55 08/03/24 07:55 08/03/24 07:55 08/03/24 07:55
I&O
08/02/24 08/03/24 08/04/24
06:59 06:59 06:59
Intake Total 840 / 840 1180 / 1180
Output Total 300 / 300
Balance 540 / 540 1180 / 1180
[2024-08-03 12:33] LABS: Glucose - Point of Care 287 mg/dl (70-99)
--- NOTE | 2024-08-03 13:11 | CM ---
CM met with pt and mother
Pt with Down Syndrome and resides with his mother in [place] 2 [place]
Pt is indep at baseline and no DMEs
Enjoys spending time watching [employer] television
PCP- Elly Jang
Rx- [facility]
Discharge Disposition- home, no needs anticipated
[2024-08-03 15:40] VITALS: BP 120/70
[2024-08-03 16:37] LABS: Glucose - Point of Care 217 mg/dl (70-99)
[2024-08-03] MEDS: LIPITOR 10 MG PO (17:29)
[2024-08-03] MEDS: NOVOLOG FLEXPEN-LOW RESISTANCE 2 UNITS SC (17:29)
[2024-08-03] MEDS: LOVENOX 40 MG SC (17:29)
[2024-08-03 21:53] LABS: Glucose - Point of Care 275 mg/dl (70-99)
[2024-08-03 23:53] VITALS: BP 137/85
[2024-08-04] MEDS: NSS (PRESERVATIVE FREE) 10 ML IV (00:13)
[2024-08-04] MEDS: PROTONIX IV 40 MG IV (00:13)
[2024-08-04] MEDS: ROBITUSSIN DM 5 ML PO (02:05)
--- NOTE | 2024-08-04 04:00 | PTCARENOTE ---
08/03 413 pt's mother states pt is c/o 'epigastric pain' . pt denies sob, palpations, chest pain per pt's mother. VS 97.4-81-20-137/85-94 2L. DENIAL MANAGEMENT REPRESENTATIVE notified, now dose of protonix ordered.
[2024-08-04] MEDS: SYNTHROID 112 MCG PO (05:10)
[2024-08-04] MEDS: STERILE WATER FOR INJECTION 10 ML IV (05:10)
[2024-08-04] MEDS: ROCEPHIN 1000 MG IV (05:10)
[2024-08-04 06:00] VITALS: BMI 34.3
[2024-08-04 07:07] VITALS: BP 113/72
[2024-08-04] MEDS: VIBRAMYCIN 100 MG PO (07:28)
[2024-08-04] MEDS: GLUCOTROL 5 MG PO (07:28)
[2024-08-04] MEDS: TAMIFLU 75 MG PO (07:28)
[2024-08-04] MEDS: GLUCOPHAGE 1000 MG PO (07:28)
[2024-08-04] MEDS: PROTONIX 40 MG PO (07:28)
[2024-08-04] MEDS: MUCINEX 600 MG PO (07:28)
[2024-08-04 07:29] LABS: Glucose - Point of Care 241 mg/dl (70-99)
[2024-08-04] MEDS: ZESTRIL 5 MG PO (07:29)
[2024-08-04] MEDS: ZYLOPRIM 300 MG PO (07:30)
[2024-08-04] MEDS: NOVOLOG FLEXPEN-LOW RESISTANCE 2 UNITS SC (07:32)
[2024-08-04 08:01] LABS: % Basophils 0.4 % (0-2); % Eosinophils 0.5 % (0-6); % Immature Granulocytes 0.5 % (0-0.5); % Lymphocytes 25.5 % (20.5-51.1); % Monocytes 4.2 % (1.7-9.3); % Neutrophils 68.9 % (42.2-75.2); Absolute Lymphocytes 2.1 10^3/uL (1.2-3.4); Absolute Monocytes 0.3 10^3/uL (0.1-0.6); Absolute Neutrophils 5.6 10^3/uL (1.4-6.5); Hematocrit 36.2 % (39.0-52.0); Hemoglobin 12.6 g/dL (13.0-18.0); Mean Corp Hgb Conc. 34.8 g/dL (33.0-37.0); Mean Corpuscular Hgb 30.7 pg (27.0-31.0); Mean Corpuscular Volume 88.3 fL (80.0-94.0); Nucleated Red Blood Cells % 0 % (-); Platelet Count 297 10^3/uL (130-400); Red Cell Dist. Width 14.1 % (11.5-14.5); White Blood Cell Count 8.1 10^3/uL (4.8-10.8)
[2024-08-04 08:31] LABS: Blood Urea Nitrogen 17 mg/dl (9-20); Calcium 8.8 mg/dl (8.4-10.2); Carbon Dioxide 24 mmol/L (22-30); Chloride 103 mmol/L (98-107); Estimated Creatinine Clearance 121 ml/min; Glucose 242 mg/dl (70-99); Potassium 4.7 mmol/L (3.5-5.1); Sodium 135 mmol/L (135-145); eGFR > 60.00
--- NOTE | 2024-08-04 10:28 | W.PN.HOSP.TC ---
Today's Communication/Plan
-
dc
Assessment / Plan
Assessment / Plan
44yo M with Down syndrome, DM, HLD, gout, hypothyroidism, HTN came with weakness, cough and SOB, found Influenza B with signs of b/l pneumonia. Weaned off O2, overall was improving on Abx and Tamiflu. Remained afebrile and with normal WBC count >48h
before discharge date so reasonable for outpatient treatment. PAtient also recently was seen by outside plant cable engineer and had uneventful cardiac echo and stress test as per mother bedside.
A/P:
#Acute hypoxic respiratory insufficiency 2/2 Influenza B with pneumonia, cannot r/o superimposed CAP
Ceftriaxone/DOxy
Tamiflu
Bcx NTD
Weaned off O2 as of 08/04/24
#DM type 2 with unspecified complications
Diabetic diet, accuchecks, Insulin SS
#Essential HTN
#hypothyroidism
#Down syndrome
#HLD
#Gout
cont home meds
DVT ppx lovenox
FUll code
I have spent at least 37min reviewing chart, test results, communication with family and providing direct patient care
Anticipated Discharge: Today
Subjective/Interval History
-
Date of Service: August 04, 2024
Objective Data
-
Labs:
Laboratory Results
08/04/24
06:59
WBC 8.1
Hgb 12.6 L
Hct 36.2 L
Plt Count 297 D
Sodium 135
Potassium 4.7
Chloride 103
Carbon Dioxide 24
BUN 17
Creatinine 0.7
Glucose 242 H
Calcium 8.8
Vital Signs:
Vital Signs
Temp Pulse Resp BP Pulse Ox
98.6 F 82 18 113/72 96
08/04/24 07:07 08/04/24 07:07 08/04/24 07:07 08/04/24 07:07 08/04/24 09:28
I&O
08/03/24 08/04/24 08/05/24
06:59 06:59 06:59
Intake Total 1180 / 1180 1560 / 1560
Balance 1180 / 1180 1560 / 1560
Review of Systems
-
History Source: Patient
All other systems: Reviewed and negative
Physical Exam
-
General: No Apparent Distress
HEENT: Normocephalic
Cardiac: Regular Rhythm
GI: Soft, Nontender and Nondistended
Musculoskeletal: No Clubbing, No Cyanosis and No Edema
Neuro: Awake, Alert, Oriented and AO x 3
Psych: Calm
--- NOTE | 2024-08-04 10:33 | W.DCSUMMARY ---
Discharge Summary
Discharge Data
Date of Admission: 08/01/24
Date of Discharge: 08/04/24
-
Pending Results: No
Hospital Course
44yo M with Down syndrome, DM, HLD, gout, hypothyroidsm, HTN came with weakness, cough and SOB, found Influenza B with signs of b/l pneumonia. Weaned off O2, overall was improving on Abx and Tamiflu. Remained afebrile and with normal WBC count >48h
before discharge date so reasonable for outpatient treatment. PAtient also recently was seen by voice intercept technician and had uneventful cardiac echo and stress test as per mother bedside. Started on Lipitor as per lipid mgmt guidelins in DM and tolerated it
well
I have spent at least 37min reviewing chart, test results, communication with family and providing direct patient care
Patient was managed for:
#Acute hypoxic respiratory insufficiency 2/2 Influenza B with pneumonia, cannot r/o superimposed CAP
#DM type 2 with unspecified complications
#Essential HTN
#hypothyroidism
#Down syndrome
#HLD
#Gout
Discharge Plan
-
Patient Disposition: Home (Routine Discharge)
Discharge Diagnosis/Procedures: Influenza B
Diet: Diabetic, Carb Controlled
Activity: As tolerated
Driving Restrictions: As prior to admission
Referrals:
Elly Jang DO [Family Provider] -
Prescriptions:
New
cefdinir 300 mg capsule
300 mg PO BID Qty: 6 0RF
atorvastatin 10 mg Tablet
10 mg PO QPM Qty: 30 0RF
oseltamivir 75 mg Capsule
75 mg PO BID Qty: 4 0RF
doxycycline hyclate 100 mg Capsule
100 mg PO Q12 Qty: 6 0RF
allopurinol 300 mg Tablet
300 mg PO DAILY Qty: 0 0RF
Continued
lisinopril 5 MG tablet
5 mg PO DAILY
docosahexaenoic acid-epa 1 CAP capsule
1 cap PO DAILY
Rx Instructions:
120-180 1 po qd
pantoprazole [Protonix] 40 mg tablet,delayed release (DR/EC)
40 mg PO DAILY Qty: 30 0RF
atorvastatin 10 mg tablet
10 mg PO QPM
metformin 1,000 mg tablet
1,000 mg PO BID
allopurinol 300 mg tablet
300 mg PO DAILY
glipizide 5 mg tablet
5 mg PO BID@0800,1700
levothyroxine 112 mcg tablet
112 mcg PO DAILY@0600
Discharge Date and Time
Print Language: FINNISH
--- NOTE | 2024-08-04 10:54 | CM ---
Reviewed the chart notes and spoke with the patient's mother at the bedside. Patient is ready for discharge today to home. CM continues to be available to patient/family and is monitoring medical plan for needs at discharge.
Plan: Discharge to home today. No needs identified at this time. Mother will provide transportation home.
[2024-08-04 11:47] LABS: Glucose - Point of Care 299 mg/dl (70-99)
[2024-08-04] MEDS: NOVOLOG FLEXPEN-LOW RESISTANCE 3 UNITS SC (12:01)
[2024-08-04 12:11] VITALS: BP 115/75
== END 2024-08-04 12:51 | disposition home or self-care (01) | DRG 871 ==
LOC: 2 NORTH 02:15
PROVIDERS: Internal Medicine; Physician Assistant; ADMITTING PHYSICIAN Internal Medicine; ATTENDING PHYSICIAN Internal Medicine; EMERGENCY PHYSICIAN Emergency Medicine; FAMILY PHYSICIAN Family Medicine
DX: A41.89 Other specified sepsis (principal); J10.00 Influenza due to other identified influenza virus with unspecified type of pneumonia; E11.65 Type 2 diabetes mellitus with hyperglycemia; I10 Essential (primary) hypertension; E03.9 Hypothyroidism, unspecified; M10.9 Gout, unspecified; Q90.9 Down syndrome, unspecified; Z79.84 Long term (current) use of oral hypoglycemic drugs
CPT/HCPCS: 71046; 80048; 80053; 81003; 81015; 82962; 83036; 83605; 85025; 87040; 87070; 87502; 87811; 87880; 93005; 94640; 96361; 96374; 99285

== ENCOUNTER → 2024-09-22 15:56 | Outpatient (REF) | payer MEDICARE, OTHER, SELFPAY | LOC: RAD 15:56 | PROVIDERS: ATTENDING PHYSICIAN Family Medicine | DX: J18.9 Pneumonia, unspecified organism (principal) | CPT/HCPCS: 71046 ==

== ENCOUNTER → 2024-12-10 14:21 | Outpatient (REF) | payer OTHER, SELFPAY | LOC: RAD 14:21 | PROVIDERS: ATTENDING PHYSICIAN Family Medicine | DX: R10.9 Unspecified abdominal pain (principal); R07.81 Pleurodynia | CPT/HCPCS: 71101; 76700 ==